=== PATIENT | female | born 1990 | race African-American/Black ===

== ENCOUNTER 2021-02-21 18:44 | Emergency (ER) | payer MEDICAID ==
[~2021-02-21] VITALS: Ht 170.2 cm; Wt 84.0 kg
[2021-02-21 20:45] VITALS: BP 132/87
[2021-02-21] MEDS ORDERED: ACETAMINOPHEN 325MG TABLET PO ONE (21:15)
== END 2021-02-21 22:04 | disposition home or self-care (01) ==
LOC: ER 18:44
DX: R07.89 Other chest pain (principal); R03.0 Elevated blood-pressure reading, without diagnosis of hypertension
CPT/HCPCS: 71046; 81025; 93005; 99283

== ENCOUNTER 2021-03-23 18:16 | Emergency (ER) | payer MEDICAID ==
[~2021-03-23] VITALS: Ht 170.2 cm; Wt 88.0 kg
[2021-03-23 18:24] VITALS: BP 160/98
== END 2021-03-23 19:42 | disposition home or self-care (01) ==
LOC: ER 18:16
DX: Z00.00 Encounter for general adult medical examination without abnormal findings (principal)
CPT/HCPCS: 99281